=== PATIENT | male | born 1935 | race Caucasian/White ===

== ENCOUNTER → 2019-07-15 | Outpatient (CLI) | payer MEDICARE, OTHER ==
[~2019-07-15] MED LIST: ACET500T68 PO; ALLO300T PO; ASPI-630 PO; CHOL500016 PO; CYAN250012 PO; GABA-586 PO; LACT1CAP8 PO; LEVO50TA PO; LISI-334 PO; LORA10TA3 PO; MONT10TA80 PO; NITR0.4T22 SL; PRAZ1CAP PO; RANI150T2 PO; SIMV40TA3 PO; SODI650T PO; SPIR25TA5 PO; UBID50TA PO; ZOLP5TAB PO; [UNRECOGNIZED DRUG - OTHER] TOP
[2019-07-15 11:34] VITALS: BP 127/54
== END | disposition home or self-care (01) ==
LOC: SURG 11:19
PROVIDERS: ATTEND Anesthesiology
DX: M54.16 Radiculopathy, lumbar region (principal); M47.816 Spondylosis without myelopathy or radiculopathy, lumbar region; M25.551 Pain in right hip; M16.11 Unilateral primary osteoarthritis, right hip
CPT/HCPCS: 99214

== ENCOUNTER → 2020-04-28 | Outpatient (CLI) | payer MEDICARE, OTHER ==
[2019-07-15 11:34] VITALS: BP 127/54
[~2020-04-28] MED LIST changes: +SIMV40TA18 PO; -SIMV40TA3 PO
== END | disposition home or self-care (01) ==
LOC: SURG 12:30
PROVIDERS: ATTEND Anesthesiology
DX: M25.512 Pain in left shoulder (principal); G89.29 Other chronic pain
CPT/HCPCS: 99213; G0463

== ENCOUNTER → 2021-12-21 | Day surgery (SDC) | payer MEDICARE, OTHER ==
[~2021-12-21] MED LIST changes: +BUPIVACAINE MPF 0.25% 30 ML VIAL. ONE; +COLC0.6T34 PO; +EMPA25TA3 PO; +HYDR200T5 PO; +LIDOCAINE 1% PF 30 ML VIAL. ONE; -LISI-334 PO; +LISI20TA18 PO; +MELA10CA PO; +METH2.5T PO; +folic acid PO
[2021-12-21 11:28] VITALS: BP 126/64
== END | disposition home or self-care (01) ==
LOC: SURG 10:29
PROVIDERS: ATTEND Anesthesiology
DX: M47.816 Spondylosis without myelopathy or radiculopathy, lumbar region (principal); I10 Essential (primary) hypertension; I25.10 Atherosclerotic heart disease of native coronary artery without angina pectoris; K21.9 Gastro-esophageal reflux disease without esophagitis; M48.061 Spinal stenosis, lumbar region without neurogenic claudication; M51.36 Other intervertebral disc degeneration, lumbar region; M06.9 Rheumatoid arthritis, unspecified; Z85.46 Personal history of malignant neoplasm of prostate; Z90.49 Acquired absence of other specified parts of digestive tract; Z98.890 Other specified postprocedural states; Z79.899 Other long term (current) drug therapy; Z79.82 Long term (current) use of aspirin; Z83.3 Family history of diabetes mellitus; Z91.013 Allergy to seafood
CPT/HCPCS: 64493; 64494; A4209; A4657; A4930; J3490

== ENCOUNTER → 2022-01-04 | Day surgery (SDC) | payer MEDICARE, OTHER ==
[2022-01-04 13:28] VITALS: BP 140/87
== END | disposition home or self-care (01) ==
LOC: SURG 12:27
PROVIDERS: ATTEND Anesthesiology
DX: M47.816 Spondylosis without myelopathy or radiculopathy, lumbar region (principal); I10 Essential (primary) hypertension; K21.9 Gastro-esophageal reflux disease without esophagitis; I25.10 Atherosclerotic heart disease of native coronary artery without angina pectoris; M51.36 Other intervertebral disc degeneration, lumbar region; M48.061 Spinal stenosis, lumbar region without neurogenic claudication; M06.09 Rheumatoid arthritis without rheumatoid factor, multiple sites; Z90.49 Acquired absence of other specified parts of digestive tract; Z85.46 Personal history of malignant neoplasm of prostate; Z98.890 Other specified postprocedural states; Z79.899 Other long term (current) drug therapy; Z79.82 Long term (current) use of aspirin; Z88.8 Allergy status to other drugs, medicaments and biological substances; Z91.013 Allergy to seafood; Z83.3 Family history of diabetes mellitus
CPT/HCPCS: 64493; 64494; A4209; A4657; A4930; J3490